=== PATIENT | male | born 1950 | race Caucasian/White ===

== ENCOUNTER → 2023-08-23 10:05 | Outpatient (REF) | payer MEDICARE, OTHER, SELFPAY ==
[2023-08-23 10:31] LABS: % Basophils 0.5 % (0-2); % Eosinophils 1.4 % (0-6); % Immature Granulocytes 0.3 % (0-0.5); % Lymphocytes 56.5 % (20.5-51.1); % Monocytes 5.3 % (1.7-9.3); Absolute Basophils 0.1 10^3/uL (0-0.2); Absolute Eosinophils 0.2 10^3/uL (0-0.7); Absolute Lymphocytes 5.9 10^3/uL (1.2-3.4); Absolute Monocytes 0.6 10^3/uL (0.1-0.6); Absolute Neutrophils 3.8 10^3/uL (1.4-6.5); Hematocrit 40.2 % (39.0-52.0); Hemoglobin 13.9 g/dL (13.0-18.0); Mean Corp Hgb Conc. 34.6 g/dL (33.0-37.0); Mean Corpuscular Hgb 29.6 pg (27.0-31.0); Mean Corpuscular Volume 85.5 fL (80.0-94.0); Mean Platelet Volume 8.4 fL (7.4-10.4); Nucleated Red Blood Cells % 0 % (-); Platelet Count 199 10^3/uL (130-400); Red Cell Dist. Width 13.1 % (11.5-14.5); White Blood Cell Count 10.5 10^3/uL (4.8-10.8)
== END ==
LOC: REG 10:05
PROVIDERS: ATTENDING PHYSICIAN Internal Medicine Hematology & Oncology; FAMILY PHYSICIAN Internal Medicine
DX: C91.10 Chronic lymphocytic leukemia of B-cell type not having achieved remission (principal)
CPT/HCPCS: 36415; 85025

== ENCOUNTER → 2023-09-13 07:05 | Outpatient (REF) | payer MEDICARE, OTHER, SELFPAY ==
[2023-09-13 08:35] LABS: PSA, Total - Diagnostic 5.02 ng/ml (0.0-4.0)
[2023-09-13 16:47] LABS: Urine Albumin Negative (Neg - Trace); Urine Bilirubin Negative (Negative); Urine Character Clear (Clear); Urine Color Yellow; Urine Glucose Negative (Negative); Urine Ketone Negative (Negative); Urine Leukocyte Negative (Negative); Urine Nitrite Negative (Negative); Urine Occult Blood Trace (Negative); Urine Urobilinogen Negative (Neg - 1+)
[2023-09-13 17:06] LABS: Urine Mucus Few
[2023-09-13 17:07] LABS: Urine Bacteria Few (Negative); Urine White Cell 0-2 /HPF (0-5)
== END ==
LOC: REG 07:05
PROVIDERS: ATTENDING PHYSICIAN Specialist; FAMILY PHYSICIAN Internal Medicine
DX: R97.20 Elevated prostate specific antigen [PSA] (principal); N39.0 Urinary tract infection, site not specified
CPT/HCPCS: 36415; 81003; 81015; 84153

== ENCOUNTER → 2023-10-07 07:37 | Outpatient (REF) | payer MEDICARE, OTHER, SELFPAY ==
[2023-10-07 08:31] LABS: % Basophils 0.3 % (0-2); % Eosinophils 1.2 % (0-6); % Immature Granulocytes 0.3 % (0-0.5); % Lymphocytes 60.9 % (20.5-51.1); % Monocytes 6.9 % (1.7-9.3); % Neutrophils 30.4 % (42.2-75.2); Absolute Eosinophils 0.2 10^3/uL (0-0.7); Absolute Lymphocytes 8.1 10^3/uL (1.2-3.4); Absolute Monocytes 0.9 10^3/uL (0.1-0.6); Absolute Neutrophils 4.1 10^3/uL (1.4-6.5); Hematocrit 44.2 % (39.0-52.0); Mean Corp Hgb Conc. 33.9 g/dL (33.0-37.0); Mean Corpuscular Hgb 28.5 pg (27.0-31.0); Mean Platelet Volume 8.6 fL (7.4-10.4); Nucleated Red Blood Cells % 0 % (-); Platelet Count 175 10^3/uL (130-400); Red Blood Cell Count 5.26 10^6/uL (4.70-6.10); White Blood Cell Count 13.3 10^3/uL (4.8-10.8)
[2023-10-07 08:35] LABS: Urine Albumin Negative (Neg - Trace); Urine Bilirubin Negative (Negative); Urine Character Clear (Clear); Urine Color Yellow; Urine Glucose Negative (Negative); Urine Ketone Negative (Negative); Urine Leukocyte Negative (Negative); Urine Nitrite Negative (Negative); Urine Occult Blood Negative (Negative); Urine Urobilinogen Negative (Neg - 1+)
[2023-10-07 08:50] LABS: Glycohemoglobin (HgbA1c) 6.5 % (4.0-5.6)
[2023-10-07 09:14] LABS: ALT (SGPT) 34 U/L (0-50); AST (SGOT) 33 U/L (17-59); Albumin 4.4 g/dl (3.5-5.0); Alkaline Phosphatase 114 U/L (38-126); Blood Urea Nitrogen 18 mg/dl (9-20); Calcium 9.7 mg/dl (8.4-10.2); Carbon Dioxide 28 mmol/L (22-30); Chloride 103 mmol/L (98-107); Glucose 111 mg/dl (70-99); HDL Cholesterol 42 mg/dl; LDL Cholesterol, Calculated 94 mg/dl; Sodium 138 mmol/L (135-145); Total Bilirubin 0.9 mg/dl (0.2-1.3); Total Cholesterol 159 mg/dl (50-199); Total Protein 6.6 g/dl (6.3-8.2); Triglyceride 119 mg/dl (10-149); Very Low Density Lipoprotein 23 mg/dl (0-30); eGFR > 60.00
[2023-10-07 09:17] LABS: Microalbumin, Random Urine 1.8 mg/dl (0.6-1.7)
[2023-10-07 09:28] LABS: TSH 1.56 uIU/ml (0.47-4.68)
== END ==
LOC: REG 07:37
PROVIDERS: ATTENDING PHYSICIAN Internal Medicine
DX: E11.69 Type 2 diabetes mellitus with other specified complication (principal); E66.9 Obesity, unspecified; N13.8 Other obstructive and reflux uropathy; E78.2 Mixed hyperlipidemia
CPT/HCPCS: 36415; 80053; 80061; 81003; 82043; 83036; 84443; 85025

== ENCOUNTER 2023-10-08 12:49 | Emergency (ER) | payer MEDICARE, OTHER, SELFPAY ==
[2023-10-08 12:53] VITALS: BP 166/98
[2023-10-08 13:13] VITALS: BP 154/85
--- NOTE | 2023-10-08 13:19 | ED.GENMED ---
History of Present Illness
<Madeline Crowley PA-C - Last Filed: 10/08/23 18:02>
General
Chief Complaint: Breathing Problem
Source: patient
Exam Limitations: none
Time Seen by Provider: 10/08/23 13:18
Nursing documentation reviewed up to this point in time: agreed with
Travel History
Have you had any contact with someone who has COVID-19?: No
Do you have any symptoms of coronavirus? Fever > 100 degrees, chills, cough, shortness of breath, sore throat, loss of taste or smell, muscle aches, or headache?: Yes
Symptoms:: see triage note
History of Present Illness
History of Present Illness:
This is a 72 y/o male with a PMH of diabetes, HLP, leukemia presenting to the emergency department today with headache, chills, cough and shortness of breath for the past 2 weeks. Patient states that when it started, he thought it was a normal
cold, however symptoms persisted. Patient states that he is concerned he may have bronchitis. Patient also has associated chest discomfort with this. Patient states that the chest discomfort started 2 weeks ago but it has gotten worse within the
past few days and he states it is intermittent. Patient denies fever, abdominal pain, nausea, vomiting. Patient does follow with Dr. Brownlee cardiology as outpatient. Patient is a follow-up appointment coming up with him.
Past History
<Madeline Crowley PA-C - Last Filed: 10/08/23 18:02>
Past History
ED Past Medical History: HTN, Hypercholesterolemia and Other (Kidney stone)
ED Past Surgical History: Other (Nasal septum repair)
Social History
Tobacco: Non-smoker
Alcohol: Occasional
Personal:
Living: with family
Employment: Employed
Family History
Family History: Other (Noncontributory)
Review of Systems
<Madeline Crowley PA-C - Last Filed: 10/08/23 18:02>
Review of Systems
All Other Systems: ROS reviewed and negative except as documented in HPI and ROS
Phy Exam
<Madeline Crowley PA-C - Last Filed: 10/08/23 18:02>
Physical Exam
Physical Exam:
Vitals: Patient's vital signs are stable, patient is afebrile with
General: Patient is well-appearing, no acute distress
Head: Normocephalic, atraumatic
Skin: Warm and dry, no rashes or lesions
Cardiac: Regular rate and rhythm, no murmurs. No tenderness to palpation of the external chest wall.
Peripheral vascular: No lower extremity edema, 2+ dorsalis pedis pulses bilaterally.
Pulm: Normal respiratory effort, no wheezes, rales, or rhonchi heard on exam
Abdomen: No epigastric tenderness
Neuro: CN II-XII intact. No focal neurologic deficit.
Psychiatric: Appropriate mood and affect.
Scores
<Madeline Crowley PA-C - Last Filed: 10/08/23 18:02>
Heart Failure Risk
Heart Failure Risk Score: Not Applicable
Heart Score for Chest Pain Patients
STEMI patient?: No
History: Slightly or Non-Suspicious
ECG: Normal
Age: >/= 65 years
Risk Factors: >/= 3 Risk Factors or History of CAD
Troponin: </= Normal Limit
Heart Score for Chest Pain Patients: 4
Heart Score Risk: 20.3% MACE over next 6 weeks
PE Wells Score
Symptoms of DVT: No
No alternative diagnosis better explains the illness: No
Tachycardia with pulse > 100: No
Immobilization (>=3 days) or surgery within previous 4 weeks: No
Prior history of DVT or pulmonary embolism: No
Presence of hemoptysis: No
Presence of malignancy: No
Pulmonary Embolism Risk Score: 0
Probability of PE: Pt is low risk
Course
<Madeline Crowley PA-C - Last Filed: 10/08/23 18:02>
Orders/Labs/Results
Orders:
Orders
10/08/23 12:52
ECG [Electrocardiogram (*1)] Urgent
Reason for Study: Chest Pain
EKG- Treatment ONCE
10/08/23 13:34
CR Chest - 2 Views Urgent
Comment:
Reason For Exam: shortness of breath, chest pain
10/08/23 14:01
Complete Blood Count/With Diff Urgent
Comprehensive Metabolic Panel Urgent
Troponin I Urgent
Abnormal Lab Results
10/08/23
14:01
WBC 14.1 H 10^3/uL
(4.8-10.8)
Absolute Neuts (auto) 6.6 H 10^3/uL
(1.4-6.5)
Absolute Lymphs (auto) 6.1 H 10^3/uL
(1.2-3.4)
Absolute Monos (auto) 1.2 H 10^3/uL
(0.1-0.6)
BUN 26 H mg/dl
(9-20)
Glucose 104 H mg/dl
(70-99)
10/08/23 14:01
10/08/23 14:01
Vital Signs
Initial and Last Documented VS:
Initial Vital Signs
Temp Pulse Resp BP Pulse Ox
98.4 F 86 18 166/98 96
10/08/23 12:53 10/08/23 12:53 10/08/23 12:53 10/08/23 12:53 10/08/23 12:53
Last Documented Vital Signs
Temp Pulse Resp BP Pulse Ox
98.2 F 80 19 154/85 98
10/08/23 15:00 10/08/23 14:45 10/08/23 14:45 10/08/23 13:13 10/08/23 15:00
<Braydon Anglin, DO - Last Filed: 10/08/23 14:50>
Orders/Labs/Results
Orders:
Orders
10/08/23 12:52
ECG [Electrocardiogram (*1)] Urgent
Reason for Study: Chest Pain
EKG- Treatment ONCE
10/08/23 13:34
CR Chest - 2 Views Urgent
Comment:
Reason For Exam: shortness of breath, chest pain
10/08/23 14:01
Complete Blood Count/With Diff Urgent
Comprehensive Metabolic Panel Urgent
Troponin I Urgent
Abnormal Lab Results
10/08/23
14:01
WBC 14.1 H 10^3/uL
(4.8-10.8)
Absolute Neuts (auto) 6.6 H 10^3/uL
(1.4-6.5)
Absolute Lymphs (auto) 6.1 H 10^3/uL
(1.2-3.4)
Absolute Monos (auto) 1.2 H 10^3/uL
(0.1-0.6)
BUN 26 H mg/dl
(9-20)
Glucose 104 H mg/dl
(70-99)
10/08/23 14:01
10/08/23 14:01
Vital Signs
Initial and Last Documented VS:
Initial Vital Signs
Temp Pulse Resp BP Pulse Ox
98.4 F 86 18 166/98 96
10/08/23 12:53 10/08/23 12:53 10/08/23 12:53 10/08/23 12:53 10/08/23 12:53
Last Documented Vital Signs
Temp Pulse Resp BP Pulse Ox
98.2 F 80 19 154/85 98
10/08/23 15:00 10/08/23 14:45 10/08/23 14:45 10/08/23 13:13 10/08/23 15:00
<Madeilne Crowley PA-C - Last Filed: 10/08/23 18:02>
MDM/Problems Addressed
Differential Diagnosis Includes:
ddx include ACS, pneumonia, acute bronchitis, viral URI, PE, costochondritis,
MDM/Problems Addressed:
chest discomfort
shortness of breath
Chronic conditions affecting care: DM, HTN and Cancer (chronic leukemia)
Acute Exacerbation and/or Progression of Chronic Illness: DM, HTN and Cancer
<Madeline Crowley PA-C - Last Filed: 10/08/23 18:02>
*Radiology
Radiology exam reviewed: preliminary read by ED provider (No acute cardiopulmonary abnormality)
*Pulse Oximetry
Patient hypoxic: no
*EKG
Interpreted by ED Provider?: Yes
EKG Intrepretation Date: 10/08/23
Interpretation: abnormal
Comparison EKG: no changes
Rate: normal
Rhythm: sinus
Caspar: normal axis
Interval: first degree heart block
*Critical Care Note
Total Time (30-74mins, 75-104mins- exclusive of procedures): Not Applicable
<Madeline Crowley PA-C - Last Filed: 10/08/23 18:02>
Patient Management
Escalation/DeEscalation of care consider admission/obs:
This is a 72 y/o male with a PMH of diabetes, HLP, leukemia presenting to the emergency department today with headache, chills, cough and shortness of breath for the past 2 weeks. Patient concerned he has bronchitis. Patient has chest pain as well
that started within the past few days. Physical exam, patient is well-appearing. His lungs are clear to auscultation bilaterally and he is no tenderness palpation of external chest wall. Here in emergency department, his vital signs are stable,
he is afebrile. His EKG reveals a unchanged first degree AV block with no ischemic changes. Patient has no acute cardiopulmonary disease on his chest x-ray. Patient CBC reveals a leukocytosis consistent with his chronic leukemia. Patient has a
unremarkable CMP. I suspect patient's current symptoms are result of a viral infection the respiratory tract that has been lingering, we will send patient home with a albuterol inhaler to help with symptoms. Considering his age and risk factors,
advised patient to make a follow-up appointment with his quality assurance manager. Patient will follow-up. Patient stable for discharge.
ED Attending Note
<Madeline Crowley PA-C - Last Filed: 10/08/23 18:02>
-
Portions of this chart may have been created with voice recognition software.� Occasional wrong word or��sound alike� substitutions may have occurred due to the inherent limitations of voice recognition software.
<Braydon Anglin DO - Last Filed: 10/08/23 14:50>
ED Attending Note
Patient seen and examined by attending physician: Yes
I performed a history and physical exam of patient and discussed management with resident, I reviewed resident's note and agree with documented findings and plan of care.: Yes
ED Attending Note:
I have reviewed and agree with patient treatment plan by Madeline Crowley. My exam revealed
Physical Exam
General: no apparent distress, not acutely ill
Neck: supple. no meningeal signs. normal posterior pharynx
Heart: s1/s2 regular rate and rhythm, no murmur. equal radial
pulses.
HEENT: Pupils equal round reactive to light, EOMI
Lungs: no acute respiratory distress. clear bilaterally
Abdomen: normal bowel sounds. not tender. no CVAT
Neuro: alert and oriented. no focal neurological deficits cranial nerves II through XII intact
Skin: no rash
Psychiatric: well kept. interactive and cooperative
Extremities: no edema. no calf tenderness. negative homans. good distal pulses
Patient with cough, chills, headache, likely viral syndrome. Stable for discharge. Do not suspect ACS or PE. Will prescribe albuterol inhaler
Discharge Plan
Departure
Patient Disposition: Home (Routine Discharge)
Date of Disposition: 10/08/23
Time of Disposition: 14:54
Patient with high blood pressure during this ER visit?: Yes
Condition: Good
Discharge Problem:
Acute bronchitis
Instructions: Acute Bronchitis, Adult (DC), How to use your dry powder inhaler (adults), BLOOD PRESSURE
Prescriptions:
New
albuterol sulfate [ProAir HFA] 90 mcg/actuation HFA aerosol inhaler
1 puff inhalation Q4HPRN PRN (Reason: shortness of breath) Qty: 6.7 0RF
No Action
atorvastatin 40 MG tablet
80 mg PO DAILY
aspirin 81 MG tablet,delayed release (DR/EC)
81 mg PO DAILY
metformin 500 mg Tablet
500 mg PO BID
levofloxacin 500 MG tablet
500 mg PO QPM
potassium citrate 15 mEq Tablet Extended Release
15 meq PO BID
Referrals:
Waqar Douglas DO [Family Provider] -
Activity Restrictions/Additional Instructions:
We have sent an albuterol inhaler to your pharmacy. You can do 1 puff as needed for shortness of breath/cough every 4 hours.
Please return the emergency department should you experience acute worsening of your symptoms, dizziness, lightheadedness, confusion, or other concerning signs or symptoms.
Please follow-up with your quality assurance manager and your primary care provider.
Interventions
Interventions:
*Risk Screen - Suicide Last Done: 10/08/23 14:59
*General Assessment Last Done: 10/08/23 12:53
*Neglect/Abuse Screening Last Done: 10/08/23 14:59
*ED COVID-19 Vaccine History Last Done: 10/08/23 12:53
*Nursing Disposition Last Done: 10/08/23 15:00
ED- Cardiac Assessment Last Done: 10/08/23 14:19
ED- Pulmonary Assessment Last Done: 10/08/23 14:19
Discharge Date and Time
Discharge Date/Time: 10/08/23 15:07
Print Language: MALAY
[2023-10-08 14:17] LABS: % Basophils 0.3 % (0-2); % Eosinophils 0.9 % (0-6); % Immature Granulocytes 0.3 % (0-0.5); % Lymphocytes 43.1 % (20.5-51.1); % Monocytes 8.5 % (1.7-9.3); % Neutrophils 46.9 % (42.2-75.2); Absolute Eosinophils 0.1 10^3/uL (0-0.7); Absolute Lymphocytes 6.1 10^3/uL (1.2-3.4); Absolute Monocytes 1.2 10^3/uL (0.1-0.6); Absolute Neutrophils 6.6 10^3/uL (1.4-6.5); Hematocrit 41.3 % (39.0-52.0); Hemoglobin 14.6 g/dL (13.0-18.0); Mean Corp Hgb Conc. 35.4 g/dL (33.0-37.0); Mean Corpuscular Hgb 29.3 pg (27.0-31.0); Mean Corpuscular Volume 82.8 fL (80.0-94.0); Mean Platelet Volume 8.8 fL (7.4-10.4); Nucleated Red Blood Cells % 0 % (-); Platelet Count 170 10^3/uL (130-400); Red Blood Cell Count 4.99 10^6/uL (4.70-6.10); Red Cell Dist. Width 14.1 % (11.5-14.5); White Blood Cell Count 14.1 10^3/uL (4.8-10.8)
[2023-10-08 14:30] LABS: ALT (SGPT) 31 U/L (0-50); AST (SGOT) 29 U/L (17-59); Albumin 4.3 g/dl (3.5-5.0); Alkaline Phosphatase 117 U/L (38-126); Blood Urea Nitrogen 26 mg/dl (9-20); Calcium 9.7 mg/dl (8.4-10.2); Carbon Dioxide 28 mmol/L (22-30); Chloride 104 mmol/L (98-107); Glucose 104 mg/dl (70-99); Potassium 4.4 mmol/L (3.5-5.1); Sodium 137 mmol/L (135-145); Total Bilirubin 0.8 mg/dl (0.2-1.3); Total Protein 6.5 g/dl (6.3-8.2); eGFR > 60.00
[2023-10-08 14:41] LABS: Troponin I < 0.012 ng/ml
== END 2023-10-08 15:07 | disposition home or self-care (01) ==
LOC: EMR 12:49
PROVIDERS: Physician Assistant; EMERGENCY PHYSICIAN Emergency Medicine; FAMILY PHYSICIAN Internal Medicine
DX: J20.9 Acute bronchitis, unspecified (principal); R51.9 Headache, unspecified; C95.10 Chronic leukemia of unspecified cell type not having achieved remission; E11.9 Type 2 diabetes mellitus without complications; I44.0 Atrioventricular block, first degree; E78.5 Hyperlipidemia, unspecified; Z85.828 Personal history of other malignant neoplasm of skin; Z87.442 Personal history of urinary calculi; Z87.891 Personal history of nicotine dependence; Z88.0 Allergy status to penicillin
CPT/HCPCS: 99284; 71046; 80053; 84484; 85025; 93005

== ENCOUNTER → 2024-02-28 12:51 | Outpatient (REF) | payer MEDICARE, OTHER, SELFPAY ==
[2024-02-28 15:21] LABS: PSA, Total - Diagnostic 2.47 ng/ml (0.0-4.0)
== END ==
LOC: REG 12:51
PROVIDERS: ATTENDING PHYSICIAN Specialist; FAMILY PHYSICIAN Internal Medicine
DX: N39.0 Urinary tract infection, site not specified (principal); R97.20 Elevated prostate specific antigen [PSA]; N20.0 Calculus of kidney
CPT/HCPCS: 36415; 74018; 84153; 87086

== ENCOUNTER → 2024-03-07 18:35 | Outpatient (REF) | payer MEDICARE, OTHER, SELFPAY | LOC: CLAB 18:35 | PROVIDERS: ATTENDING PHYSICIAN Specialist | DX: N39.0 Urinary tract infection, site not specified (principal) | CPT/HCPCS: 87086 ==

== ENCOUNTER → 2024-04-11 07:54 | Outpatient (REF) | payer MEDICARE, OTHER, SELFPAY ==
[2024-04-11 09:13] LABS: Hematocrit 42.2 % (39.0-52.0); Hemoglobin 14.6 g/dL (13.0-18.0); Mean Corp Hgb Conc. 34.6 g/dL (33.0-37.0); Mean Corpuscular Volume 83.9 fL (80.0-94.0); Platelet Count 181 10^3/uL (130-400); Red Blood Cell Count 5.03 10^6/uL (4.70-6.10); Red Cell Dist. Width 13.2 % (11.5-14.5); White Blood Cell Count 12.1 10^3/uL (4.8-10.8)
[2024-04-11 09:28] LABS: Absolute Neutrophils -Man Diff 2.9 10^3/uL (1.4-6.5); Band Neutrophils 0 % (0-3); Eosinophils 3 % (0-6); Lymphocytes 71 % (20-51); Monocytes 2 % (2-9); Platelets Checked Yes; Segmented Neutrophils 24 % (42-75)
[2024-04-11 09:29] LABS: Normal RBC Morphology Yes; Total Cells Counted 100
[2024-04-11 10:17] LABS: ALT (SGPT) 29 U/L (0-50); AST (SGOT) 23 U/L (17-59); Albumin 4.3 g/dl (3.5-5.0); Alkaline Phosphatase 85 U/L (38-126); Blood Urea Nitrogen 20 mg/dl (9-20); Calcium 9.6 mg/dl (8.4-10.2); Carbon Dioxide 29 mmol/L (22-30); Chloride 103 mmol/L (98-107); Glucose 110 mg/dl (70-99); HDL Cholesterol 45 mg/dl; LDL Cholesterol, Calculated 87 mg/dl; Phosphorus 3.7 mg/dl (2.5-4.5); Potassium 4.4 mmol/L (3.5-5.1); Sodium 142 mmol/L (135-145); Total Cholesterol 164 mg/dl (50-199); Total Protein 6.2 g/dl (6.3-8.2); Triglyceride 162 mg/dl (10-149); Uric Acid 5.3 mg/dl (3.5-8.5); Very Low Density Lipoprotein 32 mg/dl (0-30); eGFR > 60.00
[2024-04-11 10:35] LABS: Protein/creatinine Ratio 0.2; Urine Protein 9 mg/dl
[2024-04-11 10:41] LABS: Microalbumin, Random Urine 1.2 mg/dl (0.6-1.7); Microalbumin/creatinine Ratio 20.1 mg/g
[2024-04-14 09:14] LABS: Intact PTH 51.6 pg/ml (13.6-85.8)
== END ==
LOC: REG 07:54
PROVIDERS: ATTENDING PHYSICIAN Internal Medicine
DX: E11.69 Type 2 diabetes mellitus with other specified complication (principal); N20.0 Calculus of kidney
CPT/HCPCS: 36415; 80053; 80061; 82043; 82570; 83036; 83970; 84100; 84156; 84550; 85025

== ENCOUNTER → 2024-08-21 07:43 | Outpatient (REF) | payer MEDICARE, OTHER, SELFPAY | LOC: HWRCS 07:43 | PROVIDERS: ATTENDING PHYSICIAN Student in an Organized Health Care Education/Training Program; FAMILY PHYSICIAN Internal Medicine | DX: R07.89 Other chest pain (principal) | CPT/HCPCS: 78452; 93017; A9500 ==

== ENCOUNTER → 2024-08-28 08:15 | Outpatient (REF) | payer MEDICARE, OTHER, SELFPAY | LOC: HWRCS 08:15 | PROVIDERS: ATTENDING PHYSICIAN Student in an Organized Health Care Education/Training Program; FAMILY PHYSICIAN Internal Medicine | DX: R06.00 Dyspnea, unspecified (principal) | CPT/HCPCS: 93306 ==

== ENCOUNTER → 2024-08-30 07:30 | Outpatient (REF) | payer MEDICARE, OTHER, SELFPAY ==
[2024-08-30 09:45] LABS: Hematocrit 45.4 % (39.0-52.0); Hemoglobin 15.3 g/dL (13.0-18.0); Mean Corp Hgb Conc. 33.7 g/dL (33.0-37.0); Mean Corpuscular Hgb 29.9 pg (27.0-31.0); Mean Corpuscular Volume 88.8 fL (80.0-94.0); Mean Platelet Volume 8.9 fL (7.4-10.4); Platelet Count 157 10^3/uL (130-400); Red Blood Cell Count 5.11 10^6/uL (4.70-6.10); White Blood Cell Count 10.9 10^3/uL (4.8-10.8)
[2024-08-30 12:41] LABS: % Basophils 0.3 % (0-2); % Eosinophils 1.3 % (0-6); % Immature Granulocytes 0.2 % (0-0.5); % Lymphocytes 64.2 % (20.5-51.1); % Monocytes 6.5 % (1.7-9.3); % Neutrophils 27.5 % (42.2-75.2); Absolute Eosinophils 0.1 10^3/uL (0-0.7); Absolute Monocytes 0.7 10^3/uL (0.1-0.6); Nucleated Red Blood Cells % 0 % (-)
== END ==
LOC: REG 07:30
PROVIDERS: ATTENDING PHYSICIAN Internal Medicine Hematology & Oncology; FAMILY PHYSICIAN Internal Medicine
DX: C91.10 Chronic lymphocytic leukemia of B-cell type not having achieved remission (principal)
CPT/HCPCS: 36415; 85025

== ENCOUNTER → 2024-09-25 06:53 | Outpatient (REF) | payer MEDICARE, OTHER, SELFPAY ==
[2024-09-25 08:03] LABS: ALT (SGPT) 29 U/L (0-50); AST (SGOT) 24 U/L (17-59); Albumin 4.7 g/dl (3.5-5.0); Alkaline Phosphatase 101 U/L (38-126); Blood Urea Nitrogen 21 mg/dl (9-20); Calcium 9.5 mg/dl (8.4-10.2); Carbon Dioxide 31 mmol/L (22-30); Chloride 105 mmol/L (98-107); Glucose 122 mg/dl (70-99); HDL Cholesterol 48 mg/dl; LDL Cholesterol, Calculated 73 mg/dl; Potassium 4.2 mmol/L (3.5-5.1); Sodium 143 mmol/L (135-145); Total Bilirubin 0.8 mg/dl (0.2-1.3); Total Cholesterol 149 mg/dl (50-199); Total Protein 6.4 g/dl (6.3-8.2); Triglyceride 142 mg/dl (10-149); Very Low Density Lipoprotein 28 mg/dl (0-30); eGFR > 60.00
[2024-09-25 08:22] LABS: Microalbumin, Random Urine 3.3 mg/dl (0.6-1.7); Microalbumin/creatinine Ratio 29.2 mg/g
[2024-09-25 09:13] LABS: Glycohemoglobin (HgbA1c) 6.2 % (4.0-5.6)
== END ==
LOC: REG 06:53
PROVIDERS: ATTENDING PHYSICIAN Internal Medicine
DX: E11.69 Type 2 diabetes mellitus with other specified complication (principal); E78.2 Mixed hyperlipidemia
CPT/HCPCS: 36415; 80053; 80061; 82043; 82570; 83036

== ENCOUNTER 2024-10-06 06:42 | Emergency (ER) | payer MEDICARE, OTHER, SELFPAY ==
[2024-10-06 07:03] VITALS: BP 166/91
--- NOTE | 2024-10-06 07:36 | ED.GENMED ---
History of Present Illness
General
Chief Complaint: Cold/Flu/URI Symptoms
Source: patient
Exam Limitations: none
Time Seen by Provider: 10/06/24 07:28
Nursing documentation reviewed up to this point in time: agreed with
History of Present Illness
History of Present Illness:
Patient is a 73-year-old male who presents to the ER for evaluation. Patient reports he has been sick for the past 10 days with cough and cold symptoms, nasal congestion. . He had a regular family doctor. Tuesday for basic checkup and was
given' cough medicine' however patient reports he had a lot of shortness of breath last night while laying down and cannot sleep. He does not feel that he had fever. No other sick contacts at home. He is not vaccinated against influenza
Past History
Past History
ED Past Medical History: HTN, Hypercholesterolemia and Other (Kidney stone)
ED Past Surgical History: Other (Nasal septum repair)
Social History
Tobacco: Non-smoker
Alcohol: Occasional
Personal:
Living: with family
Employment: Employed
Family History
Family History: Other (Noncontributory)
Review of Systems
Review of Systems
Allergies reviewed?: Yes
All Other Systems: ROS reviewed and negative except as documented in HPI and ROS
Constitutional: Reports no symptoms
Respiratory: Reports cough and trouble breathing
Cardiac: Reports no symptoms
ABD/GI: Reports no symptoms
: Reports no symptoms
Musculoskeletal: Reports no symptoms
Skin: Reports no symptoms
Neurological: Reports no symptoms
Psychiatric: Reports no symptoms
Phy Exam
General Physical Exam
General Presentation: no apparent distress
General age: appears stated age
General Skin: warm and dry
General Habitus: normal
General Mental: alert
General Hydration: appears well hydrated
Cardiovascular Exam
Cardiovascular Exam: regular rate/rhythm, no murmur and normal peripheral pulses
Pulmonary Exam
Pulmonary Exam: lungs clear and no respiratory distress
Neurological Exam
Neurological Exam: alert and oriented x3
Musculoskeletal Exam
Musculoskeletal Exam: full ROM
Skin Exam
Skin Exam: normal color and warm/dry
Psychiatric Exam
Psychiatric Exam: normal mood/affect
Course
Orders/Labs/Results
Orders:
Orders
10/06/24 07:43
Chest [CR Chest - 2 Views ] Urgent
Comment:
Reason For Exam: cough/sob
10/06/24 08:14
COVID-19 Antigen Urgent
Source: Nasal Swab
Complete Blood Count/With Diff Urgent
Comprehensive Metabolic Panel Urgent
Influenza A+B Rapid Molecular Urgent
VANDANA Source: Nasal Swab
Specimen Description:
10/06/24 08:58
Albuterol Nebs [Ventolin Nebules] 2.5 mg INH R NOW STA
Abnormal Lab Results
10/06/24
08:14
WBC 11.3 H 10^3/uL
(4.8-10.8)
Glucose 215 H mg/dl
(70-99)
Total Protein 5.7 L g/dl
(6.3-8.2)
10/06/24 08:14
10/06/24 08:14
Vital Signs
Initial and Last Documented VS:
Initial Vital Signs
Temp Pulse Resp BP Pulse Ox
98.5 F 88 16 166/91 95
10/06/24 07:03 10/06/24 07:03 10/06/24 07:03 10/06/24 07:03 10/06/24 07:03
Last Documented Vital Signs
Temp Pulse Resp BP Pulse Ox
98.5 F 88 16 166/91 95
10/06/24 07:03 10/06/24 07:03 10/06/24 07:03 10/06/24 07:03 10/06/24 07:03
MDM/Problems Addressed
Differential Diagnosis Includes:
Not limited to viral syndrome, COVID, flu, pneumonia less likely
MDM/Problems Addressed:
. symptoms are consistent with viral syndrome. Patient is nontoxic lungs are clear audible cough however no acute distress he has no history of pulmonary issues. He is a non-smoker. His COVID testing is negative and/ flu are negative chest x-ray
negative for pneumonia. White count minimally active likely reactive.
will d/c w/ albuterol inhaler.
*Critical Care Note
Total Time (30-74mins, 75-104mins- exclusive of procedures): Not Applicable
ED Attending Note
-
Portions of this chart may have been created with voice recognition software.� Occasional wrong word or��sound alike� substitutions may have occurred due to the inherent limitations of voice recognition software.
Discharge Plan
Departure
Patient Disposition: Home (Routine Discharge)
Date of Disposition: 10/06/24
Time of Disposition: 09:40
Patient with high blood pressure during this ER visit?: Yes
Condition: Fair
Covid-19: Not Applicable
Discharge Problem:
Acute viral syndrome, Cough
Instructions: Viral Syndrome (DC), Cough in adults - ED discharge instructions, BLOOD PRESSURE
Prescriptions:
New
albuterol sulfate 90 mcg/actuation HFA aerosol inhaler
2 inh inhalation Q6H PRN (Reason: shortness of breath or wheezing) Qty: 6.7 0RF
No Action
atorvastatin 40 MG tablet
80 mg PO DAILY
aspirin 81 MG tablet,delayed release (DR/EC)
81 mg PO DAILY
metformin 500 mg Tablet
500 mg PO BID
levofloxacin 500 MG tablet
500 mg PO QPM
potassium citrate 15 mEq Tablet Extended Release
15 meq PO BID
albuterol sulfate [ProAir HFA] 90 mcg/actuation HFA aerosol inhaler
1 puff inhalation Q4HPRN PRN (Reason: shortness of breath) Qty: 6.7 0RF
Referrals:
Waqar Douglas, [Family Provider] -
Activity Restrictions/Additional Instructions:
As discussed symptoms are consistent with viral syndrome. Be sure to increase fluid intake you may continue to take your previously prescribed cough medicine. In addition an albuterol inhaler was sent to pharmacy to use as directed. Return if any
worsening of symptoms. Follow-up with family doctor in the next 2 days for reevaluation.
Interventions
Interventions:
*Risk Screen - Suicide Last Done: 10/06/24 07:03
Discharge Date and Time
Print Language: NAMIBIAN
[2024-10-06 08:40] LABS: Hematocrit 40.6 % (39.0-52.0); Hemoglobin 14.3 g/dL (13.0-18.0); Mean Corp Hgb Conc. 35.2 g/dL (33.0-37.0); Mean Corpuscular Hgb 30.2 pg (27.0-31.0); Mean Corpuscular Volume 85.8 fL (80.0-94.0); Mean Platelet Volume 8.6 fL (7.4-10.4); Platelet Count 167 10^3/uL (130-400); Red Blood Cell Count 4.73 10^6/uL (4.70-6.10); Red Cell Dist. Width 12.7 % (11.5-14.5); White Blood Cell Count 11.3 10^3/uL (4.8-10.8)
[2024-10-06 08:48] LABS: COVID-19 Antigen Negative (Negative)
[2024-10-06 08:56] LABS: ALT (SGPT) 22 U/L (0-50); AST (SGOT) 20 U/L (17-59); Albumin 3.8 g/dl (3.5-5.0); Alkaline Phosphatase 118 U/L (38-126); Blood Urea Nitrogen 18 mg/dl (9-20); Calcium 9.7 mg/dl (8.4-10.2); Carbon Dioxide 27 mmol/L (22-30); Chloride 106 mmol/L (98-107); Glucose 215 mg/dl (70-99); Potassium 3.9 mmol/L (3.5-5.1); Sodium 141 mmol/L (135-145); Total Bilirubin 0.6 mg/dl (0.2-1.3); Total Protein 5.7 g/dl (6.3-8.2); eGFR > 60.00
[2024-10-06] MEDS: VENTOLIN NEBULES 2.5 MG INH (09:30)
[2024-10-06 09:55] LABS: % Basophils 0.5 % (0-2); % Eosinophils 1.8 % (0-6); % Immature Granulocytes 0.3 % (0-0.5); % Monocytes 7.9 % (1.7-9.3); % Neutrophils 42.5 % (42.2-75.2); Absolute Basophils 0.1 10^3/uL (0-0.2); Absolute Eosinophils 0.2 10^3/uL (0-0.7); Absolute Lymphocytes 5.3 10^3/uL (1.2-3.4); Absolute Monocytes 0.9 10^3/uL (0.1-0.6); Absolute Neutrophils 4.8 10^3/uL (1.4-6.5); Nucleated Red Blood Cells % 0 % (-)
[2024-10-06 10:04] VITALS: BP 124/74
== END 2024-10-06 10:05 | disposition home or self-care (01) ==
LOC: EMR 06:42
PROVIDERS: Nurse Practitioner; EMERGENCY PHYSICIAN Emergency Medicine; FAMILY PHYSICIAN Internal Medicine
DX: B34.9 Viral infection, unspecified (principal); R05.9 Cough, unspecified; I10 Essential (primary) hypertension; E78.00 Pure hypercholesterolemia, unspecified; Z87.442 Personal history of urinary calculi
CPT/HCPCS: 99284; 94640; 71046; 80053; 85025; 87502; 87811

== ENCOUNTER → 2024-12-01 06:37 | Outpatient (REF) | payer MEDICARE, OTHER, SELFPAY | LOC: PAVMRI 06:37 | PROVIDERS: ATTENDING PHYSICIAN Pain Medicine Interventional Pain Medicine; FAMILY PHYSICIAN Internal Medicine | DX: M54.16 Radiculopathy, lumbar region (principal) | CPT/HCPCS: 72148 ==

== ENCOUNTER 2025-02-24 10:46 | Emergency (ER) | payer MEDICARE, OTHER, SELFPAY ==
[2025-02-24 10:56] VITALS: BP 153/95
[2025-02-24 11:35] VITALS: BMI 30.7
[2025-02-24 11:43] VITALS: BP 165/76
[2025-02-24 11:53] LABS: Hematocrit 43.4 % (39.0-52.0); Hemoglobin 14.7 g/dL (13.0-18.0); Mean Corp Hgb Conc. 33.9 g/dL (33.0-37.0); Mean Corpuscular Volume 86.5 fL (80.0-94.0); Nucleated Red Blood Cells % 0 % (-); Platelet Count 133 10^3/uL (130-400); Red Cell Dist. Width 12.9 % (11.5-14.5)
[2025-02-24 11:57] LABS: COVID-19 Antigen Positive (Negative)
[2025-02-24 12:04] VITALS: BP 164/87
[2025-02-24 12:21] LABS: ALT (SGPT) 26 U/L (0-50); AST (SGOT) 22 U/L (17-59); Albumin 4.4 g/dl (3.5-5.0); Alkaline Phosphatase 92 U/L (38-126); Blood Urea Nitrogen 20 mg/dl (9-20); Calcium 9.4 mg/dl (8.4-10.2); Carbon Dioxide 29 mmol/L (22-30); Chloride 102 mmol/L (98-107); Estimated Creatinine Clearance 75 ml/min; Glucose 131 mg/dl (70-99); Potassium 4.7 mmol/L (3.5-5.1); Sodium 135 mmol/L (135-145); Total Protein 6.6 g/dl (6.3-8.2); eGFR > 60.00
[2025-02-24] MEDS: NSS 1000 IV (12:35)
--- NOTE | 2025-02-24 12:39 | ED.GENMED ---
History of Present Illness
General
Chief Complaint: Fall
Source: patient and spouse
Time Seen by Provider: 02/24/25 11:52
History of Present Illness
History of Present Illness:
74-year-old male with past medical history of hyperlipidemia, cgi-gghisze-gndprkdes diabetes, previous urinary tract infections presenting to the emergency department for evaluation of cough, body aches, generalized fatigue and had a near syncopal
event earlier this morning accompanied with a low-grade fever. states that the patient was leaning on the counter and started to fall down, she attempted to catch him but states he still fell to the ground and seemed a little bit confused
afterwards but now seems to be back at his baseline mentation patient notes still with the cough and fatigue. Patient states that he got the shingles vaccine on Tuesday and was unsure if the symptoms were related. He denies any chills or rigors,
chest pain or shortness of breath. Patient does note he had some loose stool yesterday as well.
Past History
Past History
ED Past Medical History: HTN, Hypercholesterolemia, NIDDM and Other (Kidney stone)
ED Past Surgical History: Urological and Other (Nasal septum repair)
Social History
Tobacco: Non-smoker
Alcohol: Occasional
Drug: None
Personal:
Living: with family
Employment: Employed
Family History
Family History: Other (Noncontributory)
Review of Systems
Review of Systems
All Other Systems: ROS reviewed and negative except as documented in HPI and ROS
Phy Exam
Physical Exam
Physical Exam:
GENERAL: Alert , in no apparent distress
EYE: conjunctiva clear
Head: Normocephalic atraumatic
NECK: Supple,
ENT: mmm. abrasion right lower lateral lip, no active bleeding
LUNGS: no acute respiratory distress but persistent cough noted
NEUROLOGICAL: Alert and oriented
SKIN: Warm and dry, skin intact.
MUSCULOSKELETAL: well perfused.
PSYCH: Normal and appropriate interaction.
Scores
Heart Failure Risk
Heart Failure Risk Score: Not Applicable
Heart Score for Chest Pain Patients
STEMI patient?: Not applicable
Withdrawal Assessment of Alcohol
Withdrawal Assessment Completed?: Not applicable
Course
Orders/Labs/Results
Orders:
Orders
02/24/25 11:37
CXR2 [CR Chest - 2 Views ] Urgent
Comment:
Reason For Exam: Cough
02/24/25 11:44
COVID-19 Antigen Urgent
Source: Nasal Swab
Complete Blood Count/With Diff Urgent
Comprehensive Metabolic Panel Urgent
Influenza A+B Rapid Molecular Urgent
VANDANA Source: Nasal Swab
Specimen Description:
02/24/25 12:21
CT Head W/o Iv Contrast Urgent
Comment:
Reason For Exam: fall, head injury
02/24/25 12:35
0.9% Sodium Chloride 1000 ml [Nss] 1,000 ml IV BOLUS
02/24/25 14:43
Guaifenesin/Dextromethorphan [Robitussin Dm] 10 ml PO NOW STA
Abnormal Lab Results
02/24/25
11:44
Absolute Monos (auto) 1.2 H 10^3/uL
(0.1-0.6)
Monocytes % 15.3 H %
(1.7-9.3)
Glucose 131 H mg/dl
(70-99)
SARS-CoV-2 Antigen Positive A
(Negative)
02/24/25 11:44
02/24/25 11:44
Vital Signs
Initial and Last Documented VS:
Initial Vital Signs
Temp Pulse Resp BP Pulse Ox
98.8 F 93 17 153/95 99
02/24/25 10:56 02/24/25 10:56 02/24/25 10:56 02/24/25 10:56 02/24/25 10:56
Last Documented Vital Signs
Temp Pulse Resp BP Pulse Ox
98.8 F 93 17 156/131 96
02/24/25 10:56 02/24/25 10:56 02/24/25 10:56 02/24/25 14:38 02/24/25 14:45
MDM/Problems Addressed
Differential Diagnosis Includes:
COVID
Flu
Other viral etiology
Pneumonia
Vaccination side effect
Electrolyte derangement
Anemia
MDM/Problems Addressed:
74-year-old male presenting to the ER for flulike symptoms since Tuesday after getting shingles vaccine. Had near syncopal event at home today prompting to bring him to the ER. Patient hemodynamically stable and in no acute distress. COVID
testing had been ordered from triage and ultimately came back positive. Given symptoms have been ongoing for 48 hours I did offer patient antiviral therapy with Paxlovid to which he agreed to take. Labs reassuring. concern for head injury so
will obtain CT. Chest x-ray without findings suspicious for pneumonia.
*Radiology
Radiology exam reviewed: preliminary read by ED provider (No acute findings) and radiology read reviewed
*Pulse Oximetry
SaO2: 98
Oxygen Mode of Delivery: Room air
Patient hypoxic: no
*Critical Care Note
Total Time (30-74mins, 75-104mins- exclusive of procedures): Not Applicable
Patient Management
Escalation/DeEscalation of care consider admission/obs:
CT head negative. Rx for Paxlovid sent to patient's pharmacy. Patient was advised that he needs to hold taking his atorvastatin while taking the Paxlovid. Patient and both expressed understanding. Continue OTC measures for viral illness as
needed. Aware of return precautions. Stable for discharge home.
ED Attending Note
-
Portions of this chart may have been created with voice recognition software.� Occasional wrong word or��sound alike� substitutions may have occurred due to the inherent limitations of voice recognition software.
Discharge Plan
Departure
Patient Disposition: Home (Routine Discharge)
Date of Disposition: 02/24/25
Time of Disposition: 14:48
Patient with high blood pressure during this ER visit?: Yes
Discharge Problem:
COVID-19, Generalized weakness
Instructions: COVID-19 in adults (DC)
Prescriptions:
New
Paxlovid 300 mg (150 mg x 2)-100 mg tablets,dose pack
See Rx Instructions .ROUTE .COMPLEX Qty: 30 0RF
Rx Instructions:
take TWO 150 mg tablets of nirmatrelvir with ONE 100 mg tablet of ritonavir twice daily for 5 days
benzonatate 200 mg capsule
200 mg PO TID PRN (Reason: Cough) Qty: 20 0RF
No Action
atorvastatin 40 MG tablet
80 mg PO DAILY
aspirin 81 MG tablet,delayed release (DR/EC)
81 mg PO DAILY
metformin 500 mg Tablet
500 mg PO BID
levofloxacin 500 MG tablet
500 mg PO QPM
potassium citrate 15 mEq Tablet Extended Release
15 meq PO BID
albuterol sulfate [ProAir HFA] 90 mcg/actuation HFA aerosol inhaler
1 puff inhalation Q4HPRN PRN (Reason: shortness of breath) Qty: 6.7 0RF
albuterol sulfate 90 mcg/actuation HFA aerosol inhaler
2 inh inhalation Q6H PRN (Reason: shortness of breath or wheezing) Qty: 6.7 0RF
Referrals:
Waqar Douglas DO [Family Provider, Internal Medicine]
Stand Alone Forms: Return to Work
Activity Restrictions/Additional Instructions:
Stop taking your atorvastatin while taking paxlovid. You may resume taking upon completing course of paxlovid
Interventions
Interventions:
*Risk Screen - Suicide Last Done: 02/24/25 10:57
*General Assessment Last Done: 02/24/25 10:57
*Neglect/Abuse Screening Last Done: 02/24/25 10:57
*ED- Fall Risk Assessment Last Done: 02/24/25 11:35
*ED COVID-19 Vaccine History Last Done: 02/24/25 10:57
*Nursing Disposition Last Done: 02/24/25 15:08
ED-Musculoskeletal Assessment Last Done: 02/24/25 11:46
ED- Neurological Assessment Last Done: 02/24/25 11:46
ED-Skin Assessment Last Done: 02/24/25 11:46
Discharge Date and Time
Discharge Date/Time: 02/24/25 15:16
Print Language: PORTUGUESE
[2025-02-24 13:00] VITALS: BP 151/78
[2025-02-24 14:38] VITALS: BP 156/131
[2025-02-24] MEDS: ROBITUSSIN DM 10 ML PO (14:45)
== END 2025-02-24 15:16 | disposition home or self-care (01) ==
LOC: EMR 10:46
PROVIDERS: EMERGENCY PHYSICIAN Emergency Medicine; FAMILY PHYSICIAN Internal Medicine
DX: R55 Syncope and collapse (principal); U07.1 COVID-19; R53.1 Weakness; R19.7 Diarrhea, unspecified; W19.XXXA Unspecified fall, initial encounter; Z11.52 Encounter for screening for COVID-19; I10 Essential (primary) hypertension; E78.00 Pure hypercholesterolemia, unspecified; E11.9 Type 2 diabetes mellitus without complications; Z87.442 Personal history of urinary calculi
CPT/HCPCS: 99284; 96360; 70450; 71046; 80053; 85025; 87502; 87811

== ENCOUNTER 2025-03-19 13:41 | Emergency (ER) | payer MEDICARE, OTHER, SELFPAY ==
[2025-03-19 13:44] VITALS: BP 149/86
--- NOTE | 2025-03-19 14:57 | ED.GENMED ---
History of Present Illness
General
Chief Complaint: Cough
Source: patient and spouse
Time Seen by Provider: 03/19/25 14:43
History of Present Illness
History of Present Illness:
74-year-old male who was diagnosed with COVID on around February 24, for which he took Paxlovid. Patient states he was feeling much better after starting treatment but still has a lingering cough. This is occasionally productive of clear sputum
without associated hemoptysis. He got concerned because over the last few days to week the cough has not gone away and sometimes he feels chills. He checked his temperature and at times it is lower than normal. He also feels kind of weak. Denies
vomiting, diarrhea, anorexia, dyspnea, headache, neck pain, photophobia, abdominal pain. When asked about chest pain he states that he has some 'burning' related to the cough otherwise denies chest pain or pressure. He denies leg swelling
Past History
Past History
ED Past Medical History: HTN, Hypercholesterolemia, NIDDM and Other (Kidney stone)
ED Past Surgical History: Urological and Other (Nasal septum repair)
Social History
Tobacco: Non-smoker
Alcohol: Occasional
Drug: None
Personal:
Living: with family
Employment: Employed
Family History
Family History: Other (Noncontributory)
Phy Exam
Physical Exam
Physical Exam:
GENERAL: Alert , in no apparent distress, pleasant, occasional cough noted
EYE: pupils equal and reactive
NECK: Supple, no significant adenopathy.
ENT: o/p clr, mmm, no trismus, no drool, voice clear.
CARDIAC: Regular rate and rhythm .
LUNGS: Clear breath sounds bilaterally, no acute respiratory distress, no wheezes/rales/rhonchi
ABDOMEN: Soft, without focal tenderness, no r/g, no cvat
NEUROLOGICAL: Alert and oriented, no focal neuro deficits
SKIN: Warm and dry, skin intact.
MUSCULOSKELETAL: No edema, well perfused.
PSYCH: Normal and appropriate interaction.
Course
Orders/Labs/Results
Orders:
Orders
03/19/25 14:38
CXR2 [CR Chest - 2 Views ] Urgent
Comment:
Reason For Exam: cough, COVID 02/24
03/19/25 14:57
Electrocardiogram (*1) Urgent
Reason for Study: Other
Other Reason for Exam: cough
EKG- Treatment ONCE
Vital Signs
Initial and Last Documented VS:
Initial Vital Signs
Temp Pulse Resp BP Pulse Ox
98.1 F 88 16 149/86 98
03/19/25 13:44 03/19/25 13:44 03/19/25 13:44 03/19/25 13:44 03/19/25 13:44
Last Documented Vital Signs
Temp Pulse Resp BP Pulse Ox
98.1 F 88 16 149/86 98
03/19/25 13:44 03/19/25 13:44 03/19/25 13:44 03/19/25 13:44 03/19/25 15:00
*Pulse Oximetry
SaO2: 98
Oxygen Mode of Delivery: Room air
Patient hypoxic: no
*Critical Care Note
Total Time (30-74mins, 75-104mins- exclusive of procedures): Not Applicable
Update Note
Update Note:
Patient presents to the Emergency Department with _cough, measured hypothermia
Number and Complexity of Problems Addressed at the Encounter
� Chronic conditions affecting care:
� Acute Exacerbation and/or Progression of Chronic Illness:
� Differential Diagnosis includes: But not limited to COVID related cough, bronchitis, pneumonia, viral illness, etc. etc.
Amount and/or Complexity of Data to be Reviewed and Analyzed
� I performed an independent evaluation of and my interpretation is:
EKG: Normal sinus rhythm, normal rate, no acute ischemia
CT:
Xrays: Preliminary read by me NAD
Laboratory Studies:
Other:
� Review of other/old records reveals:
� Clinical information was obtained by an independent historian: who is bedside
� Prescriptions/Medications Considered but not given:
� Further testing considered but not performed:
Risk of Complications and/or Morbidity or Mortality of Patient Management
� Social determinants of health affecting care:
� Discussion with other providers (PCP, Hospitalists, Consultants, etc):
� Escalation of care including admission/observation vs risk of discharge considered: Patient extremely stable here, unremarkable vital signs with exception of mild hypertension, normal respiratory status, no wheezing. Discussed
with patient and importance of follow-up and reasons return to the emergency department.
ED Attending Note
-
Portions of this chart may have been created with voice recognition software.� Occasional wrong word or��sound alike� substitutions may have occurred due to the inherent limitations of voice recognition software.
Discharge Plan
Departure
Patient Disposition: Home (Routine Discharge)
Date of Disposition: 03/19/25
Time of Disposition: 15:19
Patient with high blood pressure during this ER visit?: Yes
Condition: Good
Discharge Problem:
Cough
Instructions: Cough, Adult (DC), BLOOD PRESSURE
Prescriptions:
No Action
atorvastatin 40 MG tablet
80 mg PO DAILY
aspirin 81 MG tablet,delayed release (DR/EC)
81 mg PO DAILY
metformin 500 mg Tablet
500 mg PO BID
levofloxacin 500 MG tablet
500 mg PO QPM
potassium citrate 15 mEq Tablet Extended Release
15 meq PO BID
albuterol sulfate [ProAir HFA] 90 mcg/actuation HFA aerosol inhaler
1 puff inhalation Q4HPRN PRN (Reason: shortness of breath) Qty: 6.7 0RF
albuterol sulfate 90 mcg/actuation HFA aerosol inhaler
2 inh inhalation Q6H PRN (Reason: shortness of breath or wheezing) Qty: 6.7 0RF
Paxlovid 300 mg (150 mg x 2)-100 mg tablets,dose pack
See Rx Instructions .ROUTE .COMPLEX Qty: 30 0RF
Rx Instructions:
take TWO 150 mg tablets of nirmatrelvir with ONE 100 mg tablet of ritonavir twice daily for 5 days
benzonatate 200 mg capsule
200 mg PO TID PRN (Reason: Cough) Qty: 20 0RF
Referrals:
Waqar Douglas DO [Family Provider, Internal Medicine] - Next open appointment
Activity Restrictions/Additional Instructions:
IF YOU DEVELOP SHORTNESS OF BREATH, PERSISTENT CHEST PAIN, SWELLING, TROUBLE SWALLOWING, GET WORSE, OR OTHER WORRISOME SIGNS, PLEASE RETURN TO THE ER IMMEDIATELY!
Interventions
Interventions:
*Risk Screen - Suicide Last Done: 03/19/25 13:44
*Neglect/Abuse Screening Last Done: 03/19/25 13:44
Discharge Date and Time
Print Language: BOLIVIAN
== END 2025-03-19 16:13 | disposition home or self-care (01) ==
LOC: EMR 13:41
PROVIDERS: EMERGENCY PHYSICIAN Emergency Medicine; FAMILY PHYSICIAN Internal Medicine
DX: R05.9 Cough, unspecified (principal); E11.9 Type 2 diabetes mellitus without complications; I10 Essential (primary) hypertension; E78.00 Pure hypercholesterolemia, unspecified; Z79.84 Long term (current) use of oral hypoglycemic drugs; Z79.82 Long term (current) use of aspirin; Z86.16 Personal history of COVID-19
CPT/HCPCS: 99284; 71046; 93005

== ENCOUNTER → 2025-03-29 07:48 | Outpatient (REF) | payer MEDICARE, OTHER, SELFPAY ==
[2025-03-29 09:11] LABS: ALT (SGPT) 27 U/L (0-50); AST (SGOT) 22 U/L (17-59); Albumin 4.3 g/dl (3.5-5.0); Alkaline Phosphatase 107 U/L (38-126); Blood Urea Nitrogen 19 mg/dl (9-20); Calcium 9.3 mg/dl (8.4-10.2); Carbon Dioxide 28 mmol/L (22-30); Chloride 105 mmol/L (98-107); Glucose 122 mg/dl (70-99); HDL Cholesterol 45 mg/dl; LDL Cholesterol, Calculated 94 mg/dl; Potassium 4.2 mmol/L (3.5-5.1); Sodium 140 mmol/L (135-145); Total Protein 6.4 g/dl (6.3-8.2); Very Low Density Lipoprotein 25 mg/dl (0-30); eGFR > 60.00
[2025-03-29 09:12] LABS: Glycohemoglobin (HgbA1c) 6.3 % (4.0-5.6)
[2025-03-29 09:38] LABS: PSA, Total - Screen 2.80 ng/ml (0.0-4.0)
[2025-03-29 09:42] LABS: Microalb - Urine Creatinine 68.100 mg/dl
[2025-03-29 09:47] LABS: Microalbumin, Random Urine 1.7 mg/dl (0.6-1.7)
== END ==
LOC: REG 07:48
PROVIDERS: ATTENDING PHYSICIAN Internal Medicine; FAMILY PHYSICIAN Internal Medicine
DX: E11.69 Type 2 diabetes mellitus with other specified complication (principal); E78.2 Mixed hyperlipidemia; N40.1 Benign prostatic hyperplasia with lower urinary tract symptoms; N20.0 Calculus of kidney; Z12.5 Encounter for screening for malignant neoplasm of prostate
CPT/HCPCS: 36415; 80053; 80061; 82043; 82365; 82570; 83036; 84100; G0103

== ENCOUNTER → 2025-04-03 15:15 | Outpatient (REF) | payer MEDICARE, OTHER, SELFPAY | LOC: RAD 15:15 | PROVIDERS: ATTENDING PHYSICIAN Internal Medicine; FAMILY PHYSICIAN Internal Medicine | DX: N20.0 Calculus of kidney (principal) | CPT/HCPCS: 76775 ==

== ENCOUNTER → 2025-04-09 09:07 | Outpatient (REF) | payer MEDICARE, OTHER, SELFPAY | LOC: HWRAD 09:07 | PROVIDERS: ATTENDING PHYSICIAN Physician Assistant; FAMILY PHYSICIAN Internal Medicine | DX: M53.3 Sacrococcygeal disorders, not elsewhere classified (principal); W19.XXXA Unspecified fall, initial encounter | CPT/HCPCS: 72220 ==

== ENCOUNTER → 2025-05-21 08:58 | Outpatient (REF) | payer MEDICARE, OTHER, SELFPAY | LOC: CLAB 08:58 | PROVIDERS: ATTENDING PHYSICIAN Specialist | DX: N39.0 Urinary tract infection, site not specified (principal) | CPT/HCPCS: 87086 ==